=== PATIENT | male | born 1945 | race Caucasian/White ===

== ENCOUNTER → 2016-12-02 | Outpatient (CLI) | payer MEDICARE, OTHER ==
[~2016-12-02] MED LIST: ASPIRIN 32325 MG/TAB PO; COZAAR100 MG PO; EFFIENT10 MG PO; LIPITOR20 MG PO; LOPRESSOR 225 MG/TAB PO; LOW DOSE ASPIRI81 MG PO; METOPROLOL25 MG PO; NITROQUICK0.4 MG SL
== END ==
LOC: COL.RAD 10:15
DX: Z01.810 Encounter for preprocedural cardiovascular examination (principal)

== ENCOUNTER 2021-06-30 18:23 | Emergency (ER) | payer MEDICARE, OTHER ==
[~2021-06-30] VITALS: Ht 180.3 cm; Wt 59.1 kg
[2021-06-30 18:27] VITALS: TEMP 97.1
[2021-06-30] MEDS ORDERED: ZOFRAN ODT4 MG PO (21:16)
[2021-06-30 21:36] VITALS: BP 142/70; PULSE 64
== END 2021-06-30 21:36 | disposition home or self-care (01) ==
LOC: COL.ER 18:23
DX: T78.40XA Allergy, unspecified, initial encounter (principal); A05.9 Bacterial foodborne intoxication, unspecified; I10 Essential (primary) hypertension; Z79.899 Other long term (current) drug therapy
CPT/HCPCS: J1200; J2405; J2765; J2930; J7030